=== PATIENT | female | born 1935 | race Caucasian/White ===

== ENCOUNTER 2019-04-20 22:34 | Observation (INO) ==
[2019-04-20] MEDS: Acetaminophen 325 MG TABLET PO ONE (23:29)
[2019-04-20 23:33] LABS: INR 1.1; Prothrombin Time 12.8 Seconds (9.4-12.1)
[2019-04-20 23:42] LABS: Basophils # 0.1 K/mcL (0.0-0.2); Basophils % 0.7 %; Eosinophils # 0.1 K/mcL (0.0-0.6); Eosinophils % 1.9 %; Hematocrit 34.1 % (35.3-44.9); Hemoglobin 11.2 g/dL (11.5-15.4); Immature Granulocytes % 0.3 % (0-4); Lymphocytes # 0.8 K/mcL (0.6-4.6); Lymphocytes % 11.3 %; Mean Corpuscular HGB Conc 32.8 g/dL (31.6-35.5); Mean Corpuscular Hemoglobin 30.4 pg (28.0-33.3); Mean Corpuscular Volume 92.4 fL (83.0-100.0); Mean Platelet Volume 10.1 fL (9.4-12.4); Monocytes # 0.5 K/mcL (0.0-1.3); Monocytes % 7.6 %; Neutrophils # 5.5 K/mcL (1.6-8.9); Platelet Count 155 K/mcL (140-400); Red Blood Count 3.69 M/mcL (3.82-4.97); Red Cell Distribution Width 13.6 % (11.5-14.5); Segmented Neutrophils % 78.2 %
[2019-04-20 23:45] LABS: BUN/Creatinine Ratio 17 (6-26); Blood Urea Nitrogen 16 mg/dL (8-23); Calcium 8.8 mg/dL (8.6-10.3); Carbon Dioxide 28 mEq/L (23-29); Chloride 106 mEq/L (98-107); Glucose 134 mg/dL (70-105); Osmolality,Calculated 293 (280-300); Potassium 3.3 mEq/L (3.5-5.1); Sodium 140 mEq/L (136-145); eGFR For African Americans > 60 (> 60); eGFR For Non-African Americans 58 (> 60)
[2019-04-21 00:10] LABS: Troponin I < 0.03 ng/mL (< 0.04)
[2019-04-21] MEDS ORDERED: Ondansetron 4 MG/2 ML VIAL IVP ONE (00:30)
[2019-04-21] MEDS ORDERED: Ondansetron 4 MG/2 ML VIAL IVP PRN ×2 (00:48→02:23)
[2019-04-21] MEDS ORDERED: Naloxone 0.4 MG/ML INJ IVP PRN ×2 (00:48→01:27)
[2019-04-21] MEDS ORDERED: *HR* LORazepam 0.5 MG TABLET PO PRN (01:27)
[2019-04-21] MEDS: Acetaminophen 325 MG TABLET PO ONE ×4 (02:43→04:25)
[2019-04-21 04:46] LABS: Bilirubin,Urine Negative (Negative); Blood,Urine Trace-lysed (Negative); Color,Urine Yellow (Yellow); Glucose,Urine (UA) Normal (Normal); Ketones,Urine Negative (Negative); Leukocyte Esterase,Urine Negative (Negative); Nitrite,Urine Negative (Negative); Protein,Urine Negative (Neg-Trace); Urobilinogen,Urine Normal (Normal)
[2019-04-21 04:47] LABS: Clarity,Urine Slightly Cloudy (Clear)
[2019-04-21 04:56] LABS: Squamous Epithelial Cell,Urine Many per lpf (None-Few)
[2019-04-21 05:00] LABS: Bacteria,Urine Few per hpf (None-Few); Mucus,Urine Few (Few); WBC,Urine 0-3 per hpf (0-3)
[2019-04-21] MEDS: Levothyroxine 25 MCG TABLET PO SCH (06:06)
[2019-04-21] MEDS ORDERED: Loratadine 10 MG TABLET PO SCH (09:00)
[2019-04-21] MEDS ORDERED: NON-FORMULARY MEDICATION 1 EACH EACH (Omega-3/Dha/Epa/Fish Oil [Omega 3 500 Softgel] 1 EAC PO SCH (09:00)
[2019-04-21] MEDS ORDERED: Lisinopril 20 MG TABLET PO SCH (09:00)
[2019-04-21] MEDS: D MANNOSE PO SCH (09:01)
[2019-04-21] MEDS: Aspirin 81 MG TAB.CHEW PO SCH (09:03)
[2019-04-21] MEDS: cloNIDine HCl 0.1 MG TABLET PO SCH (20:22)
[2019-04-22 06:06] LABS: Basophils % 0.5 %; Eosinophils # 0.2 K/mcL (0.0-0.6); Eosinophils % 3.8 %; Hematocrit 32.6 % (35.3-44.9); Hemoglobin 10.2 g/dL (11.5-15.4); Immature Granulocytes % 0.3 % (0-4); Lymphocytes # 0.7 K/mcL (0.6-4.6); Lymphocytes % 16.8 %; Mean Corpuscular HGB Conc 31.3 g/dL (31.6-35.5); Mean Corpuscular Hemoglobin 29.4 pg (28.0-33.3); Mean Corpuscular Volume 93.9 fL (83.0-100.0); Monocytes # 0.3 K/mcL (0.0-1.3); Monocytes % 8.3 %; Neutrophils # 2.8 K/mcL (1.6-8.9); Platelet Count 136 K/mcL (140-400); Red Blood Count 3.47 M/mcL (3.82-4.97); Segmented Neutrophils % 70.3 %
[2019-04-22] MEDS: Levothyroxine 25 MCG TABLET PO SCH (06:10)
[2019-04-22 06:34] LABS: Chol/HDL Ratio 4.1 (0-4.9)
[2019-04-22 06:36] LABS: BUN/Creatinine Ratio 14 (6-26); Blood Urea Nitrogen 14 mg/dL (8-23); Calcium 8.6 mg/dL (8.6-10.3); Carbon Dioxide 31 mEq/L (23-29); Chloride 108 mEq/L (98-107); Glucose 136 mg/dL (70-105); Magnesium 1.8 mg/dL (1.6-2.6); Osmolality,Calculated 295 (280-300); Potassium 4.2 mEq/L (3.5-5.1); Sodium 141 mEq/L (136-145); eGFR For African Americans > 60 (> 60); eGFR For Non-African Americans 54 (> 60)
[2019-04-22] MEDS: Aspirin 81 MG TAB.CHEW PO SCH (08:42)
[2019-04-22] MEDS: cloNIDine HCl 0.1 MG TABLET PO SCH (08:42)
[2019-04-22] MEDS: D MANNOSE PO SCH (08:43)
[2019-04-22 09:23] LABS: % Iron Saturation 10 % (15-50); Ferritin 131 ng/mL (10-120); Iron 20 mcg/dL (50-170); Transferrin 145 mg/dL (203-362)
[2019-04-22 09:24] LABS: Folate 5.6 ng/mL (3.0-16.0)
[2019-04-22 11:04] VITALS: BP 116/61
[2019-04-22] MEDS ORDERED: Cyanocobalamin (B-12) 1,000 MCG/ML VIAL IM ONE (15:26)
== END 2019-04-22 16:40 | disposition home or self-care (01) ==
LOC: INPPIK 22:34 → EMEROOPIK 22:34 → INPPIK 04-21 01:05
PROVIDERS: ADMIT Internal Medicine; ATTEND Internal Medicine